=== PATIENT | male | born 1995 | race Two or more races ===

== ENCOUNTER 2018-02-26 09:55 | Outpatient (CLI) | payer OTHER ==
[~2018-02-26 09:55] MED LIST: AMOX1TAB12 PO; AMOXICILLIN500 MG PO; CORTISPORIN EAR10 M1 OT
== END 2018-02-26 10:00 | disposition home or self-care (01) ==
LOC: LAB 09:55
DX: R42 Dizziness and giddiness (principal); R53.1 Weakness

== ENCOUNTER 2018-12-28 13:00 | Outpatient (CLI) | payer OTHER | END 2018-12-28 14:00 | disposition home or self-care (01) | LOC: RAD 13:00 | DX: S60.921A Unspecified superficial injury of right hand, initial encounter (principal) ==

== ENCOUNTER → 2020-02-26 10:23 | Outpatient (CLI) | payer OTHER | END | disposition home or self-care (01) | LOC: LAB 10:23 | PROVIDERS: ATTEND General Practice | DX: Z11.59 Encounter for screening for other viral diseases (principal); Z20.828 Contact with and (suspected) exposure to other viral communicable diseases ==

== ENCOUNTER 2021-12-23 09:41 | Outpatient (CLI) | payer OTHER | END 2021-12-23 09:42 | disposition home or self-care (01) | LOC: RAD 09:41 | DX: M25.531 Pain in right wrist (principal) ==

== ENCOUNTER → 2021-12-26 07:33 | Outpatient (CLI) | payer OTHER | END | disposition home or self-care (01) | LOC: LAB 07:33 | PROVIDERS: ATTEND General Practice | DX: Z11.3 Encounter for screening for infections with a predominantly sexual mode of transmission (principal); Z00.00 Encounter for general adult medical examination without abnormal findings; E78.5 Hyperlipidemia, unspecified; E55.9 Vitamin D deficiency, unspecified; R42 Dizziness and giddiness; R10.9 Unspecified abdominal pain; N39.0 Urinary tract infection, site not specified ==

== ENCOUNTER 2022-04-02 08:39 | Outpatient (CLI) | payer OTHER | END 2022-04-02 08:45 | disposition home or self-care (01) | LOC: RAD 08:39 | PROVIDERS: ATTEND General Practice | DX: S99.922A Unspecified injury of left foot, initial encounter (principal) ==